=== PATIENT | female | born 1960 | race Caucasian/White ===

== ENCOUNTER 2018-02-09 15:11 | Emergency (ER) | payer MEDICARE ==
[~2018-02-09] VITALS: Ht 172.7 cm; Wt 60.0 kg
[2018-02-09 15:13] VITALS: BP 104/70
== END 2018-02-09 15:59 | disposition home or self-care (01) ==
LOC: ED 15:53
DX: K02.9 Dental caries, unspecified (principal); Z85.828 Personal history of other malignant neoplasm of skin; F31.9 Bipolar disorder, unspecified; Z21 Asymptomatic human immunodeficiency virus [HIV] infection status
CPT/HCPCS: 99283